=== PATIENT | female | born 1985 | race Caucasian/White ===

== ENCOUNTER 2016-09-28 03:05 | Emergency (ER) | payer MEDICAID ==
[~2016-09-28] VITALS: Ht 152.4 cm; Wt 46.0 kg
[~2016-09-28 03:05] MED LIST: ALPR.25 PO; CLON1 PO; VIST25CA PO
[2016-09-28 03:08] VITALS: BP 112/65; PULSE 99; RESP 16; TEMP 97.5; O2SAT 95
[2016-09-28 03:19] VITALS: BP 121/78; PULSE 98; RESP 18; O2SAT 96
[2016-09-28] MEDS ORDERED: SUBUTEX SL (03:24)
[2016-09-28] MEDS ORDERED: FAMOTIDINE 20 MG/2 ML VIAL IV PUSH SCH (03:30)
[2016-09-28] MEDS ORDERED: diphenhydrAMINE HCL 50 MG/ML VIAL IV PUSH ONE (03:30)
[2016-09-28] MEDS ORDERED: methylPREDNISolone SOD SUCC 125 MG/2 ML VIAL IV PUSH ONE (03:30)
[2016-09-28] MEDS ORDERED: SODIUM CHLOR 0.9% 1000 ML INJ 1,000 ML IV ONE (03:30)
--- NOTE | 2016-09-28 03:37 | PD ---
HPI Chief Complaint: Oral / Dental Pain or Problem Time Seen by Provider: 03:13 Travel History International Travel<30 days: No Contact w/Intl Traveler<30days: No Traveled to known affect area: No History of Present Illness HPI The patient is a 31-year-old female who presents to the emergency department for sensation of a swollen tongue. The patient states she developed some posterior oropharyngeal pain several days ago. She now complains of the tongue that is sore, somewhat painful, and feels swollen. The patient states that the swollen tongue is causing difficulties with her speech with mild dysarthria. She does complain of some left-sided anterior neck pain, denies any fever, chills, or sweats. Initially she had mild pain with swallowing which has currently resolved. The patient is currently on Suboxone and Klonopin , denies taking antihypertensive medication such as Silvio inhibitors or ARB's. The patient denies any trauma to the tongue. The patient denies any associated fever, chills, or sweats. Symptoms are moderate without any alleviating or exacerbating factors. [facility] Past Medical History Anxiety: Yes Diminished Hearing: No Medical other: Yes (PTSD) Tetanus Vaccination: < 5 Years Influenza Vaccination: No ?: Unknown LMP: 03/10/16 : 2 Para: 1 : 1 Past Surgical History Section: Yes (2009) Social History Alcohol Use: Yes Tobacco Use: Yes (1/2 pack daily, 2 years ) Substance Use: No Allergies-Medications (Allergen,Severity, Reaction): Coded Allergies: No Known Allergies (Unverified , 09/28/16) Reported Meds & Prescriptions Reported Meds & Active Scripts Active Reported [Subutex] 8 Mg SL DAILY Klonopin (Clonazepam) 1 Mg Tab 1 Mg PO BID Review of Systems Except as stated in HPI: all other systems reviewed are Neg General / Constitutional: No: Fever HENT: Positive: Neck Pain, Other (as noted in the history of present illness) Cardiovascular: No: Chest Pain or Discomfort Respiratory: No: Shortness of Breath Gastrointestinal: No: Nausea, Vomiting Psychiatric: Positive: Anxiety Physical Exam Narrative GENERAL: Awake, alert, nontoxic-appearing 31-year-old female who appears her stated age and is in no acute respiratory distress. SKIN: Focused skin assessment warm/dry. HEAD: Atraumatic. Normocephalic. EYES: Pupils equal and round. No scleral icterus. No injection or drainage. ENT: No nasal bleeding or discharge. TMs are translucent and EACs are clear. The oropharynx reveals mild erythema in the posterior pharynx. The tongue is slightly erythematous along the edges with a beefy red complexion, however, there is no significant swelling of the tongue noted. With a tongue against the roof of the mouth there is no significant underlying edema or abscess visible. NECK: Trachea midline. No JVD. Shotty bilateral anterior cervical lymphadenopathy. CARDIOVASCULAR: Regular rate and rhythm. No murmur appreciated. RESPIRATORY: No accessory muscle use. Clear to auscultation. Breath sounds equal bilaterally. GASTROINTESTINAL: Abdomen soft, non-tender, nondistended. MUSCULOSKELETAL: No obvious deformities. No clubbing. No cyanosis. No edema. NEUROLOGICAL: Awake and alert. No obvious cranial nerve deficits. Motor grossly within normal limits. Mild change with pronation of her speech, but easily understandable. PSYCHIATRIC: Appropriate mood and affect; insight and judgment normal. Data Data Last Documented VS Vital Signs Date Time Temp Pulse Resp B/P (MAP) Pulse Ox O2 Delivery O2 Flow Rate FiO2 09/28/16 03:19 98 18 121/78 (92) 96 Room Air 09/28/16 03:08 97.5 Orders Orders Complete Blood Count With Diff (09/28/16 03:27) Comprehensive Metabolic Panel (09/28/16 03:27) Group A Rapid Strep Screen (09/28/16 03:27) Ct Soft Tiss Neck W Iv Cont (09/28/16 ) Methylprednisolone So Succ Inj (Solumedr (09/28/16 03:30) Famotidine Inj (Pepcid Inj) (09/28/16 03:30) Diphenhydramine Inj (Benadryl Inj) (09/28/16 03:30) Sodium Chlor 0.9% 1000 Ml Inj (Ns 1000 M (09/28/16 03:30) Lorazepam Inj (Ativan Inj) (09/28/16 03:45) Iohexol 350 Inj (Omnipaque 350 Inj) (09/28/16 03:51) Strep Culture (Group A) (09/28/16 03:33) Labs Laboratory Tests Test 09/28/16 03:33 White Blood Count 5.3 TH/MM3 Red Blood Count 3.85 MIL/MM3 Hemoglobin 12.6 GM/DL Hematocrit 37.5 % Mean Corpuscular Volume 97.3 FL Mean Corpuscular Hemoglobin 32.6 PG Mean Corpuscular Hemoglobin Concent 33.5 % Red Cell Distribution Width 12.6 % Platelet Count 193 TH/MM3 Mean Platelet Volume 7.3 FL Neutrophils (%) (Auto) 51.9 % Lymphocytes (%) (Auto) 39.5 % Monocytes (%) (Auto) 7.9 % Eosinophils (%) (Auto) 0.4 % Basophils (%) (Auto) 0.3 % Neutrophils # (Auto) 2.7 TH/MM3 Lymphocytes # (Auto) 2.1 TH/MM3 Monocytes # (Auto) 0.4 TH/MM3 Eosinophils # (Auto) 0.0 TH/MM3 Basophils # (Auto) 0.0 TH/MM3 CBC Comment DIFF FINAL Differential Comment Blood Urea Nitrogen 5 MG/DL Creatinine 0.52 MG/DL Random Glucose 84 MG/DL Total Protein 8.4 GM/DL Albumin 4.6 GM/DL Calcium Level 9.0 MG/DL Alkaline Phosphatase 83 U/L Aspartate Amino Transf (AST/SGOT) 160 U/L Alanine Aminotransferase (ALT/SGPT) 66 U/L Total Bilirubin 0.5 MG/DL Sodium Level 140 MEQ/L Potassium Level 3.6 MEQ/L Chloride Level 101 MEQ/L Carbon Dioxide Level 26.3 MEQ/L Anion Gap 13 MEQ/L Estimat Glomerular Filtration Rate 137 ML/MIN MDM Medical Decision Making Medical Screen Exam Complete: Yes Emergency Medical Condition: Yes Medical Record Reviewed: Yes Interpretation(s) Date/Time Source Procedure Growth Status 09/28/16 03:33 Throat Group A Streptococcus Screen Pending Received 09/28/16 03:33 Throat Group A Streptococcus Screen ([facility]) - Final Complete Laboratory Tests Test 09/28/16 03:33 White Blood Count 5.3 TH/MM3 Red Blood Count 3.85 MIL/MM3 Hemoglobin 12.6 GM/DL Hematocrit 37.5 % Mean Corpuscular Volume 97.3 FL Mean Corpuscular Hemoglobin 32.6 PG Mean Corpuscular Hemoglobin Concent 33.5 % Red Cell Distribution Width 12.6 % Platelet Count 193 TH/MM3 Mean Platelet Volume 7.3 FL Neutrophils (%) (Auto) 51.9 % Lymphocytes (%) (Auto) 39.5 % Monocytes (%) (Auto) 7.9 % Eosinophils (%) (Auto) 0.4 % Basophils (%) (Auto) 0.3 % Neutrophils # (Auto) 2.7 TH/MM3 Lymphocytes # (Auto) 2.1 TH/MM3 Monocytes # (Auto) 0.4 TH/MM3 Eosinophils # (Auto) 0.0 TH/MM3 Basophils # (Auto) 0.0 TH/MM3 CBC Comment DIFF FINAL Differential Comment Blood Urea Nitrogen 5 MG/DL Creatinine 0.52 MG/DL Random Glucose 84 MG/DL Total Protein 8.4 GM/DL Albumin 4.6 GM/DL Calcium Level 9.0 MG/DL Alkaline Phosphatase 83 U/L Aspartate Amino Transf (AST/SGOT) 160 U/L Alanine Aminotransferase (ALT/SGPT) 66 U/L Total Bilirubin 0.5 MG/DL Sodium Level 140 MEQ/L Potassium Level 3.6 MEQ/L Chloride Level 101 MEQ/L Carbon Dioxide Level 26.3 MEQ/L Anion Gap 13 MEQ/L Estimat Glomerular Filtration Rate 137 ML/MIN CT soft tissue neck reveals no acute findings. No neck masses or adenopathy identified. Paranasal sinuses are clear. Differential Diagnosis Differential diagnosis includes angioedema, glossitis, vitamin deficiency, allergic reaction, epiglottitis, laryngitis, pharyngitis, pharyngeal abscess. Narrative Course IV was established, labs were drawn and sent, and the patient was placed on cardiac telemetry monitoring and continuous pulse oximetry monitoring. Strep screen was sent to lab. The patient was administered Solu-Medrol, Pepcid, Benadryl, and IV fluids. CT soft tissue of the neck with IV contrast was ordered. The patient requested anxiety medications, therefore, was administered Ativan 0.5 mg intravenously. The patient's white count is unremarkable, LFTs do reveal AST greater than ALT, may be secondary to alcohol use. The patient has no obvious angioedema on exam, however, she feels like her tongue is swollen. Therefore the patient we placed on 4 days of prednisone , no evidence of anaphylaxis. CT reveals no significant swelling or acute findings to suggest retropharyngeal abscess or significant edema. Diagnosis Primary Impression: Tongue inflammation Patient Instructions: General Instructions Additional Instructions: Medications as directed. Please provide the patient a copy of her CT results and lab results at discharge. Return if symptoms worsen or progress. Follow- up with ENT if symptoms persist. Med/Other Pt SpecificInfo: Prescription(s) given Scripts Prednisone (Deltasone) 20 Mg Tab 40 MG PO DAILY for 4 Days, #8 TAB 0 Refills Prov: Oscar Villarreal MD 09/28/16 Disposition: 01 DISCHARGE HOME Condition: Stable Oscar Villarreal MD Sep 28, 2016 03:37
[2016-09-28 03:42] LABS: AUTOMATED NEUTROPHIL # 2.7 TH/MM3 (1.8-7.7); BASOPHIL % 0.3 % (0.0-2.0); EOSINOPHIL % 0.4 % (0.0-4.0); HEMATOCRIT 37.5 % (35.0-46.0); HEMO FLAGS DIFF FINAL; LYMPH % 39.5 % (9.0-44.0); LYMPHOCYTE # 2.1 TH/MM3 (1.0-4.8); MEAN CELL VOLUME 97.3 FL (80.0-100.0); MEAN CORPUSCULAR HEMOGLOBIN 32.6 PG (27.0-34.0); MEAN CORPUSCULAR HGB CONC 33.5 % (32.0-36.0); MONO % 7.9 % (0.0-8.0); NEUT % 51.9 % (16.0-70.0); PLATELET COUNT 193 TH/MM3 (150-450); RED BLOOD COUNT 3.85 MIL/MM3 (4.00-5.30); RED CELL DISTRIBUTION WIDTH 12.6 % (11.6-17.2); WHITE BLOOD COUNT 5.3 TH/MM3 (4.0-11.0)
[2016-09-28] MEDS ORDERED: LORazepam 2 MG/ML VIAL IV PUSH ONE (03:45)
[2016-09-28] MEDS ORDERED: IOHEXOL 350 MG/ML 10 ML VIAL (for RAD DIAG) IVCONTRAST ONE (03:51)
--- NOTE | 2016-09-28 04:04 | RADRPT ---
EXAM DATE/TIME: 09/28/2016 03:48 [facility] COMPARISON: No previous studies available for comparison. INDICATIONS : Tongue swelling and left anterior neck pain. IV CONTRAST: 70 cc Omnipaque 350 (iohexol) IV RADIATION DOSE: 8.87 CTDIvol (mGy) MEDICAL HISTORY : None SURGICAL HISTORY : section. ENCOUNTER: Initial ACUITY: 1 day PAIN SCALE: 6/10 LOCATION: Left neck TECHNIQUE: Volumetric scanning of the neck was performed. Using automated exposure control and adjustment of th e mA and/or kV according to patient size, radiation dose was kept as low as reasonably achievable to obtain optimal diagnostic quality images. DICOM format image data is available electronically for r eview and comparison. FINDINGS: NASOPHARYNX: The nasopharyngeal airway has a normal configuration. No mucosal thickening or mass is seen. OROPHARYNX: The intrinsic muscles of the tongue are symmetric. The tonsillar pillars are intact. The prevertebr al soft tissues are not thickened. LARYNX: The supraglottic, glottic, and infraglottic structures are intact. PARAPHARYNGEAL: The parapharyngeal space is intact. SALIVARY GLANDS: The parotid and submandibular glands are intact. LYMPH NODES: No enlarged or necrotic-appearing nodes. THYROID: Homogeneous enhancement without evidence of nodule. BONES: Unremarkable. CONCLUSION: 1. No acute findings. No neck masses or adenopathy identified. Paranasal sinuses are clear. Brennon Messer MD on September 28, 2016 at 3:58 Board Certified Radiologist. This report was verified electronically.
[2016-09-28 04:09] LABS: ALT (GPT) 66 U/L (10-53); ANION GAP 13 MEQ/L (5-15); AST (GOT) 160 U/L (15-37); BICARBONATE 26.3 MEQ/L (21.0-32.0); BLOOD UREA NITROGEN 5 MG/DL (7-18); CHLORIDE 101 MEQ/L (98-107); GLOMERULAR FILTRATION RATE 137 ML/MIN (>89); POTASSIUM 3.6 MEQ/L (3.5-5.1); SODIUM (NA) 140 MEQ/L (136-145)
[2016-09-28 04:11] LABS: ALKALINE PHOSPHATASE 83 U/L (45-117); TOTAL BILIRUBIN ADULT 0.5 MG/DL (0.2-1.0)
[2016-09-28] MEDS ORDERED: PRED-503 PO (04:28)
[2016-09-28 04:51] VITALS: BP 121/78; PULSE 89; RESP 18; O2SAT 100
== END 2016-09-28 04:52 | disposition home or self-care (01) ==
LOC: NEPE 03:05
DX: K14.0 Glossitis (principal); F17.290 Nicotine dependence, other tobacco product, uncomplicated; F10.10 Alcohol abuse, uncomplicated
CPT/HCPCS: 70491; 80053; 85025; 87081; 87880; 96374; 96375; 99285; J2060; J2930; J7030; Q9967